=== PATIENT | female | born 1960 | race Caucasian/White ===

== ENCOUNTER 2019-12-25 06:53 | Emergency (ER) | payer OTHER ==
[2019-12-25] MEDS ORDERED: Sodium Chloride 0.9% 10 ML Syringe FLUSH PRN (07:32)
[2019-12-25] MEDS ORDERED: Ondansetron 4 MG/2 ML SDV IVPUSH ONE (07:32)
[2019-12-25] MEDS ORDERED: Meclizine 25 MG Tab PO ONE (07:33)
--- NOTE | 2019-12-25 07:35 | EDM.PDOC ---
ED HPI GENERAL MEDICAL PROBLEM - General Chief Complaint: Gastrointestinal Problem Stated Complaint: DIZZY VOMITING Time Seen by Provider: 12/25/19 07:26 Source of Information: Reports: Patient, RN Notes Reviewed History Limitations: Reports: No Limitations - History of Present Illness INITIAL COMMENTS - FREE TEXT/NARRATIVE: 59-year-old female presents emergency department today complaint of nausea vomiting, diarrhea with dizziness she does have a known history of Mnire's disease however she did have an episode similar to this a couple months ago but not as severe. This started approximately 2 hours prior no fevers no shortness of breath no chest pain - Related Data Allergies Allergy/AdvReac Type Severity Reaction Status Date / Time Iodinated Contrast Media Allergy Headache Verified 12/25/19 07:15 Home Meds: Home Meds Fluticasone Propionate [Flonase Allergy Relief] 1 spray INH DAILY 05/28/16 [ History] Meclizine [Antivert] 25 mg PO TID PRN #20 tab 12/25/19 [Rx] Pseudoephedrine HCl [Sudogest] 1 cap PO DAILY PRN 12/25/19 [History] Triamterene/Hydrochlorothiazid [Triamterene-HCTZ 37.5-25 MG] 1 each PO DAILY 11/01 [History] Past Medical History Cardiovascular History: Reports: Hypertension Respiratory History: Reports: Other (See Below) Other Respiratory History: allergies Neurological History: Reports: Other (See Below) (Mnire's) - Past Surgical History HEENT Surgical History: Reports: Adenoidectomy, Tonsillectomy Female Surgical History: Reports: Endometrial Ablation, Tubal Ligation Social & Family History - Tobacco Use Smoking Status *Q: Current Every Day Smoker Years of Tobacco use: 15 Packs/Tins Daily: 0.5 - Caffeine Use Caffeine Use: Reports: Coffee, Soda, Tea - Recreational Drug Use Recreational Drug Use: No ED ROS GENERAL - Review of Systems Review Of Systems: See Below Constitutional: Denies: Fever, Chills HEENT: Reports: Vertigo Respiratory: Reports: No Symptoms Cardiovascular: Reports: No Symptoms GI/Abdominal: Reports: Diarrhea, Nausea, Vomiting : Reports: No Symptoms Musculoskeletal: Reports: No Symptoms Neurological: Reports: Dizziness ED EXAM, GI/ABD - Physical Exam Exam: See Below Exam Limited By: No Limitations General Appearance: Alert, WD/WN, No Apparent Distress Eyes: Bilateral: Normal Appearance Neck: Normal Inspection, Supple, Non-Tender, Full Range of Motion Respiratory/Chest: No Respiratory Distress, Lungs Clear, Normal Breath Sounds, No Accessory Muscle Use, Chest Non-Tender Cardiovascular: Regular Rate, Rhythm, No Murmur GI/Abdominal Exam: Soft, Non-Tender Course - Vital Signs Last Recorded V/S: Last Vital Signs Temp 98.0 F 12/25/19 07:15 Pulse 61 12/25/19 08:35 Resp 16 12/25/19 08:35 BP 118/68 12/25/19 08:35 Pulse Ox 98 12/25/19 08:35 - Orders/Labs/Meds Orders: Active Orders 24 hr Category Date Time Status Peripheral IV Care [RC] . DIRECTED Care 12/25/19 07:32 Active Lactated Ringers [Ringers, Lactated] 1,000 ml Med 12/25/19 07:45 Active IV ASDIRECTED Sodium Chloride 0.9% [Saline Flush] Med 12/25/19 07:32 Active 10 ml FLUSH ASDIRECTED PRN Peripheral IV Insertion Adult [OM.PC] Urgent Oth 12/25/19 07:32 Ordered Medication Orders Lactated Ringer's (Ringers, Lactated) 1,000 mls @ 999 mls/hr IV ASDIRECTED KORIN Last Admin: 12/25/19 07:46 Dose: 999 mls/hr Sodium Chloride (Saline Flush) 10 ml FLUSH ASDIRECTED PRN PRN Reason: Keep Vein Open Last Admin: 12/25/19 07:47 Dose: 10 ml Labs: Laboratory Tests 12/25/19 12/25/19 12/25/19 Range/Units 07:43 07:43 07:43 WBC 8.2 (4.5-11.0) K/uL RBC 4.96 (3.30-5.50) M/uL Hgb 14.9 (12.0-15.0) g/dL Hct 45.4 (36.0-48.0) % MCV 92 (80-98) fL MCH 30 (27-31) pg MCHC 33 (32-36) % Plt Count 231 (150-400) K/uL Neut % (Auto) 67 H (36-66) % Lymph % (Auto) 27 (24-44) % [place] % (Auto) 4 (2-6) % Eos % (Auto) 1 L (2-4) % Baso % (Auto) 1 (0-1) % Sodium 139 L (140-148) mmol/L Potassium 3.4 L (3.6-5.2) mmol/L Chloride 101 (100-108) mmol/L Carbon Dioxide 27 (21-32) mmol/L Anion Gap 14.4 H (5.0-14.0) mmol/L BUN 16 (7-18) mg/dL Creatinine 0.7 (0.6-1.0) mg/dL Est Cr Clr Drug Dosing 60.62 mL/min Estimated GFR (MDRD) > 60 (>60) Glucose 147 H (74-106) mg/dL Lactic Acid 1.7 (0.4-2.0) mmol/L Calcium 8.8 (8.5-10.1) mg/dL Total Bilirubin 0.3 (0.2-1.0) mg/dL AST 16 (15-37) U/L ALT 28 (12-78) U/L Alkaline Phosphatase 51 (46-116) U/L Total Protein 7.1 (6.4-8.2) g/dL Albumin 3.7 (3.4-5.0) g/dL Globulin 3.4 (2.3-3.5) g/dL Albumin/Globulin Ratio 1.1 L (1.2-2.2) Lipase 155 (73-393) U/L Meds: Medications Generic Name Dose Route Start Last Admin Trade Name Freq PRN Reason Stop Dose Admin Lactated Ringer's 1,000 mls @ 999 mls/hr 12/25/19 07:45 12/25/19 07:46 Ringers, Lactated IV 999 mls/hr ASDIRECTED KORIN Administration Sodium Chloride 10 ml 12/25/19 07:32 12/25/19 07:47 Saline Flush FLUSH 10 ml ASDIRECTED PRN Administration Keep Vein Open Discontinued Medications Generic Name Dose Route Start Last Admin Trade Name Freq PRN Reason Stop Dose Admin Meclizine HCl 25 mg 12/25/19 07:33 12/25/19 07:45 Antivert PO 12/25/19 07:34 25 mg ONETIME ONE Administration Ondansetron HCl 4 mg 12/25/19 07:32 12/25/19 07:46 Zofran IVPUSH 12/25/19 07:33 4 mg ONETIME ONE Administration Departure - Departure Time of Disposition: 09:13 Disposition: Home, Self-Care 01 Condition: Fair Clinical Impression: Gastroenteritis - Discharge Information Prescriptions: Meclizine [Antivert] 25 mg PO TID PRN #20 tab PRN Reason: Dizziness Instructions: Viral Gastroenteritis, Adult Referrals: PCP,None [Primary Care Provider] - Forms: ED Department Discharge Additional Instructions: Continue with your regular medications, use meclizine as needed for dizzy symptoms, use your Zofran as needed for nausea and vomiting, your medications have been faxed to [facility] pharmacy, please followup with your primary care provider in 3-5 days if not better, please call return to the emergency department with worsening of symptoms. Sepsis Event Note - Evaluation Sepsis Screening Result: No Definite Risk - Focused Exam Vital Signs: Vital Signs Temp Pulse Resp BP Pulse Ox 12/25/19 08:35 61 16 118/68 98 12/25/19 07:15 98.0 F 67 16 119/79 97 12/25/19 07:12 98.0 F 67 16 119/79 97 Date Exam was Performed: 12/25/19 Time Exam was Performed: 09:09 - My Orders Last 24 Hours: My Active Orders 12/25/19 07:32 Peripheral IV Care [RC] . DIRECTED Sodium Chloride 0.9% [Saline Flush] 10 ml FLUSH ASDIRECTED PRN Peripheral IV Insertion Adult [OM.PC] Urgent 12/25/19 07:45 Lactated Ringers [Ringers, Lactated] 1,000 ml IV ASDIRECTED - Assessment/Plan Last 24 Hours: My Active Orders 12/25/19 07:32 Peripheral IV Care [RC] . DIRECTED Sodium Chloride 0.9% [Saline Flush] 10 ml FLUSH ASDIRECTED PRN Peripheral IV Insertion Adult [OM.PC] Urgent 12/25/19 07:45 Lactated Ringers [Ringers, Lactated] 1,000 ml IV ASDIRECTED Plan: Assessment Acuity = acute Site and laterality = gastroenteritis Etiology = unknown suspicious for viral cause Manifestations = nausea vomiting diarrhea dizziness Location of injury = Home Lab values = CBC, CMP unremarkable Plan She had good improvement with 1 dose of meclizine 1 dose of Zofran as well as 1 L fluids the dizziness has improved she was able to ambulate without difficulty. Plans discharge home meclizine 25 mg p.o. 3 times daily PRN total # 20 she does have some Zofran at home these medications are faxed to [facility] pharmacy. Have her follow-up with her primary care in the next 3 to 5 days if not better This note was dictated using [employer] voice recognition software please call with any questions on syntax or grammar.
[2019-12-25] MEDS ORDERED: Lactated Ringers 1,000 ML IV SCH (07:45)
[2019-12-25 08:35] VITALS: BP 118/68; PULSE 61
== END 2019-12-25 09:30 | disposition home or self-care (01) ==
LOC: JP.ED 06:53
DX: K52.9 Noninfective gastroenteritis and colitis, unspecified (principal); I10 Essential (primary) hypertension; F17.210 Nicotine dependence, cigarettes, uncomplicated; Z91.041 Radiographic dye allergy status; Z79.899 Other long term (current) drug therapy
CPT/HCPCS: 36415; 80053; 83605; 83690; 85025; 96361; 96374; 99284; A9270; J2405; J7120